=== PATIENT | female | born 1995 | race Caucasian/White ===

== ENCOUNTER 2021-08-01 15:17 | Emergency (ER) | payer OTHER, SELFPAY ==
[2021-08-01 15:19] VITALS: BP 124/92; PULSE 97; RESP 18; TEMP 36.9; O2SAT 99; BMI 20.9
--- NOTE | 2021-08-01 15:33 | EKG12_ITS ---
Test Reason : DIZZINESS Blood Pressure : / mmHG Vent. Rate : 065 BPM Atrial Rate : 065 BPM P-R Int : 188 ms QRS Dur : 076 ms QT Int : 404 ms P-R-T Axes : 071 078 084 degrees QTc Int : 420 ms Normal sinus rhythm Normal ECG Confirmed by NOEL GARCIA, GIOVANNY ([id number]), social media editor LOIDA ROOT ([id number]) on 08/03/2021 2:14:54 PM Referred By: CARA Confirmed By:ALLY COHEN MD
--- NOTE | 2021-08-01 15:33 | CT_ITS ---
STUDY: CT BRAIN WITHOUT CONTRAST REASON FOR EXAM: Female, 26 years old. Arm weakness RADIATION DOSAGE (If Supplied By Facility): CTDIvol = ( 44.99 ) mGy, DLP = ( 745.49 ) mGycm TECHNIQUE: Transaxial CT imaging of the brain was performed without administration of intravenous contrast material. Individualized dose optimization techniques were used for this CT. COMPARISON: No relevant priors. FINDINGS: Normal soft tissue structures. Normal calvarium. Normal size ventricles and extra-axial spaces for the patient''s age. Normal white matter tracts of the cerebral hemispheres. Normal basal ganglia and thalami. Normal brainstem. Normal cerebellum. There is no intracranial hemorrhage. There are no findings of an acute ischemic infarction. Normal visualized paranasal sinuses. CT/Brain/Head without Contrast IMPRESSION: No acute intracranial process. Electronically Signed: Ginna Genao MD at 16:33 EDT ,
--- NOTE | 2021-08-01 15:34 | EX.ED.DYSGE1 ---
HPI History of Present Illness Chief Complaint: Dizziness Narrative Narrative: 26-year-old female presenting with near syncopal episode. She states that at first she had an episode which lasted a couple of seconds and she felt lightheaded. She had no vertiginous symptoms. The second time this lasted a few seconds longer and she felt as if her speech was off. She states she went to open the door after this episode and noted that she was having problems opening the door. She was able to use her arm and open the door. This only lasted a couple of seconds. She states she does not have any medical problems. No surgical history. No medications that she takes. No allergies. No history of vertigo. She had a fleeting episode of nausea. She does not believe she is and her last menstrual period was 2 weeks ago. She has no chest pain, shortness of breath, fever, chills. No abdominal pain, constipation, diarrhea. No urinary or vaginal complaints. She does not have any headaches or visual complaints. PFSH PFS Medical History no medical history Home Medications NK 08/01/21 [History Last Taken Unknown] Allergy/AdvReac Type Severity Reaction Status Date / Time No Known Allergies Allergy Verified 08/01/21 15:18 Social History Smoking Status: Never smoker ROS ROS ED Constitutional Constitutional ED: Denies chills or fever(s) Eyes Eyes: Denies blurry vision or diplopia ENT ENT ED: Denies rhinorrhea or sore throat Cardiovascular Cardiovascular: Denies chest pain or palpitations Respiratory/Chest Respiratory/Chest: Denies cough or dyspnea Gastrointestinal Gastrointestinal: Denies abdominal pain, nausea or vomiting Genitourinary Genitourinary ED: Denies dysuria or hematuria Musculoskeletal Musculoskeletal: Denies arthralgias or myalgias Integumentary Denies abscess, Abrasions or rash Neurologic Neurologic: Denies headache(s) or weakness EXAM Physical Exam Const Vital Signs: 08/01/21 15:19 08/01/21 15:33 08/01/21 17:31 Temperature 98.5 F Temperature Source Temporal Pulse Rate 97 Pulse Rate [Lying] 65 Pulse Rate [Sitting (for 1 minute prior to obtaining)] 64 Pulse Rate [Standing (for 1 minute prior to obtaining)] 76 Respiratory Rate 18 Respiratory Pattern Normal Blood Pressure 124/92 H Blood Pressure [Lying] 109/69 Blood Pressure [Sitting (for 1 minute prior to obtaining)] 113/76 Blood Pressure [Standing (for 1 minute prior to obtaining)] 115/78 Blood Pressure Mean 102 Blood Pressure Mean [Lying] 82 Blood Pressure Mean [Sitting (for 1 minute prior to obtaining)] 88 Blood Pressure Mean [Standing (for 1 minute prior to obtaining)] 90 Pulse Ox 99 Oxygen Delivery Method Room Air Positive well nourished General Appearance ED: NAD; Negative for pallor HEENT Reports moist mucous membranes Negative for trauma Eyes PERRL and EOMs intact bilaterally Neck no lymphadenopathy and supple Resp normal respiratory effort and clear to auscultation bilaterally Cardio regular rate and regular rhythm GI normal to inspection, nondistended, normoactive bowel sounds Extremity normal to inspection General Extremety ED: Negative for edema or tenderness General Extremity: Negative for edema Neuro oriented x3, CN's II-XII intact bilaterally and no sensory deficits noted Sensorium / Orientation: alert Motor Exam: strength 5/5 throughout Psych mental status grossly normal Skin no rashes or lesions noted General Skin Exam: Negative for jaundice or pallor MDM MDM MDM Narrative Medical decision making narrative: Patient presented with near syncopal episode. She states that she felt lightheaded when she stood up from sewing. She had been swelling for a long time. She had 2 episodes of this. She reported that she had some weakness of her right arm but was able to use it no blood or without too much difficulty. I obtained an EKG on my interpretation there is a normal sinus rhythm with a ventricular to 65 bpm without sign of ischemic change or dysrhythmia. CBC and CMP are unremarkable. High-sensitivity troponin is less than 3. Serum hCG negative. Urinalysis negative for infection. Chest x-ray on my interpretation shows no acute cardiopulmonary process and the radiologist does agree. CT of the brain is ordered and is negative for acute intracranial findings as interpreted by the radiologist. Orthostatic vital signs are negative. I believe the patient had a episode of orthostatic hypotension after sitting for a long period of time. I have found no other source. I do not believe she needs admitted. I have no suspicion for stroke or TIA. Discussed patient's results with her and she is amenable to be discharged home. She will follow-up with her PCP. Impression: 1. Near syncope 2. Lightheadedness Lab Data Labs: Laboratory Results - last 24 hr 08/01/21 08/01/21 08/01/21 15:45 15:45 15:45 WBC 6.6 RBC 4.23 Hgb 13.2 Hct 37.7 MCV 89.1 MCH 31.2 MCHC 35.0 RDW Std Deviation 37.8 RDW Coeff of Ashley 11.9 Plt Count 192 MPV 9.3 Immature Gran % (Auto) 0.200 Neut % (Auto) 58.1 Lymph % (Auto) 31.7 [place] % (Auto) 8.6 Eos % (Auto) 0.9 Baso % (Auto) 0.5 Absolute Neuts (auto) 3.9 Absolute Lymphs (auto) 2.10 Nucleated RBC % 0 Sodium 140 Potassium 3.8 Chloride 108 H Carbon Dioxide 28.0 Anion Gap 4 L BUN 15 Creatinine 0.72 Estim Creat Clear Calc 110.22 Est GFR (MDRD) Af Amer 125 Est GFR (MDRD) Non-Af 104 BUN/Creatinine Ratio 20.8 H Glucose 88 Calcium 9.4 Total Bilirubin 0.20 AST 15 ALT 17 Alkaline Phosphatase 53 Troponin I High Sens < 3 L Total Protein 7.6 Albumin 4.1 Globulin 3.5 Albumin/Globulin Ratio 1.2 HCG, Quant < 1 Urine Color Urine Clarity Urine pH Ur Specific [place] Urine Protein Urine Glucose (UA) Urine Ketones Urine Occult Blood Urine Nitrite Urine Bilirubin Urine Urobilinogen Ur Leukocyte Esterase Urine RBC Urine WBC Ur Squamous Epith Cells Urine Bacteria Urine Mucus 08/01/21 16:27 WBC RBC Hgb Hct MCV MCH MCHC RDW Std Deviation RDW Coeff of [place] Plt Count MPV Immature Gran % (Auto) Neut % (Auto) Lymph % (Auto) [place] % (Auto) Eos % (Auto) Baso % (Auto) Absolute Neuts (auto) Absolute Lymphs (auto) Nucleated RBC % Sodium Potassium Chloride Carbon Dioxide Anion Gap BUN Creatinine Estim Creat Clear Calc Est GFR (MDRD) Af Amer Est GFR (MDRD) Non-Af BUN/Creatinine Ratio Glucose Calcium Total Bilirubin AST ALT Alkaline Phosphatase Troponin I High Sens Total Protein Albumin Globulin Albumin/Globulin Ratio HCG, Quant Urine Color Straw Urine Clarity Clear Urine pH 6.5 Ur Specific [place] 1.010 Urine Protein Negative Urine Glucose (UA) Normal Urine Ketones Negative Urine Occult Blood Negative Urine Nitrite Negative Urine Bilirubin Negative Urine Urobilinogen Normal Ur Leukocyte Esterase Negative Urine RBC 0 SEEN Urine WBC 0 SEEN Ur Squamous Epith Cells 0-5 SEEN Urine Bacteria RARE Urine Mucus 0 SEEN Radiography Diagnostic Testing: Clinical Impression(s) from Imaging Studies Brain CT 08/01/21 15:33 IMPRESSION: No acute intracranial process. Electronically Signed: Ginna Genao MD at 16:33 EDT , Chest X-Ray 08/01/21 15:46 IMPRESSION: Normal x-ray examination of the chest. Electronically Signed: Ginna Genao MD at 16:51 EDT , Discharge Plan Triage Chief Complaint: Dizziness ED Provider: Marcus Lebron Dx/Rx/DC Orders Instructions: ED Hypotension, Orthostatic Prescriptions: No Action NK RF: 0 Primary Care Provider: Care Physician,No Primary Referrals: Care Physician,No Primary [Primary Care Provider] - Disposition Disposition: Home, Self Care Discharge Date/Time: 08/01/21 17:55
--- NOTE | 2021-08-01 15:45 | NURSING ---
NO OLD EKGS
--- NOTE | 2021-08-01 15:46 | RAD_ITS ---
STUDY: X-RAY CHEST REASON FOR EXAM: Female, 26 years old. Near syncope TECHNIQUE: Single frontal view of the chest. COMPARISON: None. FINDINGS: The lungs are clear and expanded. There is no demonstrated pleural abnormality. Normal size heart. Normal mediastinum and arnie. Normal visualized pulmonary arteries. Normal visualized aortic arch and descending thoracic aorta. Normal visualized thoracic spine. Normal visualized ribs, clavicles, and shoulders. There is no demonstrated abnormality of the visualized soft tissue structures of the upper abdomen. RAD/Chest 1 View (Portable) IMPRESSION: Normal x-ray examination of the chest. Electronically Signed: Ginna Genao MD at 16:51 EDT ,
[2021-08-01 16:13] LABS: Absolute Neutrophil Count 3.9 X10^3/uL (2.0-7.7); Basophil# 0.03 X10^3/uL; Basophil% 0.5 % (0-1); Eosinophil# 0.06 X10^3/uL; Eosinophils% 0.9 % (0-5); Hematocrit 37.7 % (37-47); Hemoglobin 13.2 g/dL (12.0-15.0); Lymphocyte % 31.7 % (19-41); Mean Corpuscular Hgb 31.2 pg (27.0-32.0); Mean Corpuscular Volume 89.1 fL (81-99); Mean Platelet Vol. 9.3 fl (6.2-12.0); Monocyte# 0.57 X10^3/uL; Monocyte% 8.6 % (0-10); NRBC Flagged by Analyzer 0 % (0-5); Neutrophil # 3.86 X10^3/uL (2.7-7.7); Neutrophil % 58.1 % (47-70); Platelet Count 192 K/mm3 (150-450); RBC Distribution Width CV 11.9 % (11.6-14.6); RBC Distribution Width SD 37.8 fl (35.1-43.9); Red Blood Count 4.23 M/mm3 (4.2-5.4); White Blood Count 6.6 K/mm3 (4.4-11.0)
[2021-08-01 16:20] LABS: ALB/GLOB Ratio 1.2 RATIO (0.9-2.4); AST(SGOT) 15 U/L (15-37); Alanine Aminotransfer ALT/SGPT 17 U/L (13-56); Albumin, Serum 4.1 g/dL (3.2-5.0); Alkaline Phosphatase 53 U/L (45-117); Anion Gap 4 (5-15); BUN 15 mg/dL (7-18); BUN/Creat Ratio 20.8 RATIO (10-20); Calcium,Total 9.4 mg/dL (8.5-10.1); Chloride 108 mmol/L (98-107); Creatinine, Serum 0.72 mg/dL (0.55-1.02); EST Glomerular Filtration Rate 104 mL/min (>60); Est Glom Filt Rate - Afr Amer 125 mL/min (>60); Estimated Creatinine Clearance 110.22 ml/min; Globulin 3.5 g/dL (2.2-4.2); Glucose 88 mg/dL (74-106); Potassium 3.8 mmol/L (3.5-5.1); Protein, Total 7.6 g/dL (6.4-8.2); Sodium Level 140 mmol/L (136-145); Troponin-I HS < 3 pg/mL (3.0-54.0)
[2021-08-01 16:35] LABS: Mucous, Urine 0 SEEN /hpf (<or=2+); Red Blood Cells-Urine 0 SEEN /hpf (0-5); White Blood Cells 0 SEEN /hpf (0-5)
[2021-08-01 16:39] LABS: hCG Titer Quant., Serum < 1 mIU/mL (1-3)
[2021-08-01 16:44] LABS: Color, Urine Straw (Yellow); Glucose, Dipstick Normal (Normal); Ketone-Dipstick Negative (Negative); Leukocyte Esterase-Dipstick Negative /ul (Negative); Nitrite-Dipstick Negative (Negative); Occult Blood-Urine Negative /ul (Negative); Protein-Dipstick Negative (Negative); Urine Bilirubin Dipstick Negative (Negative); Urine Clarity Clear (Clear); Urine Urobilinogen Normal (Normal); Urine pH 6.5 (5.0 - 8.0)
[2021-08-01 16:51] LABS: Bacteria RARE /hpf (None Seen); Squamous Epithelial Cells - UA 0-5 SEEN /hpf (5-10)
[2021-08-01 17:31] VITALS: BP 109/69; BP 113/76; BP 115/78; PULSE 64; PULSE 65; PULSE 76
== END 2021-08-01 17:55 | disposition home or self-care (01) ==
PROVIDERS: Emergency Provider Student in an Organized Health Care Education/Training Program; Visit Provider Student in an Organized Health Care Education/Training Program
DX: R55 Syncope and collapse (principal); R11.0 Nausea; R42 Dizziness and giddiness
CPT/HCPCS: 70450; 71045; 80053; 81001; 84484; 84702; 85025; 93005; 99284; A4216